=== PATIENT | female | born 1995 | race Caucasian/White ===

== ENCOUNTER 2016-06-01 23:15 | Emergency (ER) | payer BC ==
[~2016-06-01] VITALS: Ht 175.3 cm; Wt 71.1 kg
[2016-06-01 23:22] VITALS: BP 130/87; PULSE 63; RESP 24; TEMP 97.8; O2SAT 99
--- NOTE | 2016-06-02 01:58 | PD ---
HPI Chief Complaint: Eye Problems/Injury Time Seen by Provider: 01:54 Travel History International Travel<30 days: No Contact w/Intl Traveler<30days: No Traveled to known affect area: No History of Present Illness HPI 20-year-old female visiting from out of town presents with right eye irritation and redness. Patient states same symptoms 1 week ago was seen in urgent care and placed on Ilotycin ointment. After using ointment for 3 days symptoms resolved and patient resumed during contact lenses. Patient states that she has not been using the same contact lenses that she had one prior to the onset of her symptoms initially. Patient denies any known injury. Patient denies . Patient has been wearing her eyeglasses. Tetanus status current. Has noted some blurring of vision but no double vision or loss of vision. Patient has had some mild crusting at the corner of her right eye. Patient denies any lid or facial edema. Patient denies any fever or chills. Patient's had no nausea or vomiting. No report of headache. Patient reports pain as 5/ 10 in intensity. [facility] Past Medical History Narrative Medical contact lens and eyeglasses use oral surgery; no tobacco use; nursing notes reviewed Social History Tobacco Use: No Allergies-Medications (Allergen,Severity, Reaction): Coded Allergies: Penicillin (Verified Allergy, Unknown, 06/02/16) Reported Meds & Prescriptions Reported Meds & Active Scripts Active Lortab (Hydrocodone-Acetaminophen) 5-325 Mg Tab 1 Tab PO Q6H PRN Narrative Medication Ilotycin ointment Review of Systems Except as stated in HPI: all other systems reviewed are Neg General / Constitutional: No: Fever Eyes: Positive: Blurred Vision, Photophobia, Foreign Body Sensation, Pain, Tearing, No: Blind Spots HENT: No: Headaches, Vertigo, Congestion Respiratory: No: Cough Gastrointestinal: No: Nausea, Vomiting Musculoskeletal: No: Pain Skin: No Rash Hematologic/Lymphatic: No: Lymph Node Enlargement Physical Exam Narrative GENERAL: SKIN: Warm and dry. HEAD: Normocephalic. EYES: No scleral icterus. No injection or drainage. Pupils equal round reactive to light extraocular muscles intact. Right eye with conjunctival injection no chemosis bilateral pupils equal round reactive to light extraocular muscles intact no gross foreign body on direct inspection fluorescein stain with uptake at the number 11 o'clock position and along the upper outer edge of the cornea; no dendritic changes; no ulcer identified. NECK: Supple, trachea midline. No JVD or lymphadenopathy. CARDIOVASCULAR: Regular rate and rhythm without murmurs, gallops, or rubs. RESPIRATORY: Breath sounds equal bilaterally. No accessory muscle use. Data Data Last Documented VS Vital Signs Date Time Temp Pulse Resp B/P Pulse Ox O2 Delivery O2 Flow Rate FiO2 06/01/16 23:22 97.8 63 24 130/87 99 Orders Proparacaine 0.5% Opth Soln (Alcaine 0.5 (06/02/16 02:00) [facility] Medical Decision Making Medical Screen Exam Complete: Yes Emergency Medical Condition: Yes Medical Record Reviewed: Yes Differential Diagnosis Foreign body, corneal abrasion, corneal ulceration, iritis, conjunctivitis Narrative Course Proparacaine drops administered; Visual acuity obtained right eye 20/20 left eye 20/20 both eyes 20/10 wearing eyeglasses Patient identified to have corneal abrasion without evidence of corneal ulceration. Patient informed that she should not wear contact lenses until she has been evaluated by an welding machine setter. Patient is stable for outpatient management tetanus status is current and patient given referral to on-call welding machine setter. Diagnosis Primary Impression: Corneal abrasion, right Qualified Code: S05.01XA - Corneal abrasion, right, initial encounter Referrals: Application Security Specialist 1 day call center assistant opthalmologist Dr Stephanie Staton for follow up Additional Instructions: Do not wear contact lenses Follow-up with welding machine setter/eye doctor times one day Apply cool compresses for comfort purposes May take as needed ibuprofen per package directions May use saline drops to decrease the irritation Do not rub your eyes Take pain medication as prescribed as needed Med/Other Pt SpecificInfo: Prescription(s) given Scripts Hydrocodone-Acetaminophen (Lortab)5-325 Mg Tab1 Tab PO Q6H PRN (PAIN) #4 TAB Ref 0 Prov:Dea Garrido MD 06/02/16 Disposition: 01 DISCHARGE HOME Condition: Stable Dea Garrido MD Jun 02, 2016 01:58
[2016-06-02] MEDS ORDERED: PROPARACAINE HCL 0.5% OPHT SOLN 15 ML BTL RIGHT EYE ONE (02:00)
[2016-06-02] MEDS ORDERED: HYDR-3533 PO (02:24)
== END 2016-06-02 02:58 | disposition home or self-care (01) ==
LOC: PHED 23:15 → PHEFT 06-02 02:58
DX: S05.01XA Injury of conjunctiva and corneal abrasion without foreign body, right eye, initial encounter (principal); X58.XXXA Exposure to other specified factors, initial encounter
CPT/HCPCS: 99282

== ENCOUNTER 2016-08-23 15:02 | Observation (INO) | payer BC ==
[~2016-08-23] VITALS: Ht 175.3 cm; Wt 68.0 kg
[~2016-08-23 15:02] MED LIST: HYDR-3533 PO
[2016-08-23 15:03] VITALS: BP 119/78; PULSE 89; RESP 16; TEMP 98.5; O2SAT 99
--- NOTE | 2016-08-23 15:20 | PD ---
Physical Exam Time Seen by Provider: 15:18 Narrative 21 y/o female here sent by neurologist Dr. Willingham for further evaluation of diplopia, headache for one month. Specifically she says that he requested a lumbar puncture. MRI of brain 3 weeks ago reportedly showed "swelling of the R optic nerve." vss Seen at triage desk. Awaiting bed placement. Data Data Last Documented VS Vital Signs Date Time Temp Pulse Resp B/P Pulse Ox O2 Delivery O2 Flow Rate FiO2 08/23/16 15:03 98.5 89 16 119/78 99 Room Air [facility] Medical Record Reviewed: Yes Supervised Visit with JOEL: Sriram Chaudhary August 23, 2016 15:20
[2016-08-23] MEDS ORDERED: CRYS28TA PO (16:37)
[2016-08-23] MEDS ORDERED: SODIUM CHLORIDE 0.9% FLUSH 10 ML FLUSH IVF PRN (17:00)
[2016-08-23 17:02] VITALS: RESP 18; O2SAT 100
[2016-08-23 17:25] LABS: AUTOMATED NEUTROPHIL # 4.5 TH/MM3 (1.8-7.7); BASOPHIL % 0.3 % (0.0-2.0); EOSINOPHIL # 0.2 TH/MM3 (0-0.4); EOSINOPHIL % 2.5 % (0.0-4.0); HEMATOCRIT 40.8 % (35.0-46.0); HEMO FLAGS DIFF FINAL; LYMPH % 32.3 % (9.0-44.0); LYMPHOCYTE # 2.5 TH/MM3 (1.0-4.8); MEAN CELL VOLUME 90.5 FL (80.0-100.0); MEAN CORPUSCULAR HEMOGLOBIN 31.6 PG (27.0-34.0); MEAN CORPUSCULAR HGB CONC 34.9 % (32.0-36.0); MONO % 6.7 % (0.0-8.0); NEUT % 58.2 % (16.0-70.0); PLATELET COUNT 211 TH/MM3 (150-450); RED BLOOD COUNT 4.52 MIL/MM3 (4.00-5.30); RED CELL DISTRIBUTION WIDTH 12.1 % (11.6-17.2); WHITE BLOOD COUNT 7.8 TH/MM3 (4.0-11.0)
[2016-08-23 17:31] LABS: APTT (PATIENT) 27.5 SEC (24.3-30.1); PROTHROMBIN TIME - PATIENT 10.7 SEC (9.8-11.6)
[2016-08-23 17:49] LABS: BICARBONATE 27.8 MEQ/L (21.0-32.0); POTASSIUM 4.1 MEQ/L (3.5-5.1)
--- NOTE | 2016-08-23 18:23 | PD.RAD ---
Post Procedure Progress Note Pre Procedure Diagnosis: (1) Pseudotumor cerebri Post Procedure Diagnosis: (1) Pseudotumor cerebri Procedure Date: August 23, 2016 Supervising Radiologist: Theo Castrejon JR Proceduralist/Assist: Ana M Rodriguez RT(R), RT Clemencia(R)() Anesthesia: Local Plan of Activity Patient to Unit: Nursing Unit Patient Condition: Good See PACS Report for procedural detail/treatment Spinal Procedure Lumbar Puncture L4-L5 Fluid Removal (CCs): 10 Fluid Description: Clear Puncture Time: 18:10 Findings: LP yielded clear CSF. Opening pressure: 6 cm H20 Plan Lay flat for two hours Jr. Cash,Theo Barnard MD August 23, 2016 18:23
[2016-08-23 18:35] VITALS: BP 116/71; PULSE 78; RESP 17; O2SAT 99
--- NOTE | 2016-08-23 18:48 | PD ---
HPI Chief Complaint: Neuro Symptoms/ Deficits Time Seen by Provider: 16:45 Travel History International Travel<30 days: No Contact w/Intl Traveler<30days: No Traveled to known affect area: No History of Present Illness HPI Patient is 21 years old. She has left eye lateral visual field loss and right eye lower lateral quadrant visual field loss, diplopia, and cephalgia. Onset gradual. Timing constant. No additional complaint now. Duration approx 1 months. Progressively worsening. Constant. Pt reports vomiting most days. No neck pain. Pt's product accountant observed papilledema on exam. Dr Willingham was consulted who is concerned for pseudotumor cerebri and has arranged for a therapeutic LP. [facility] Past Medical History Asthma: Yes Immunizations Current: Yes (UTD) ?: Not : 0 Past Surgical History Tonsillectomy: Yes Other Surgery: Yes (WISDOM ) Social History Alcohol Use: Yes (OCC) Tobacco Use: No Substance Use: No Allergies-Medications (Allergen,Severity, Reaction): Coded Allergies: Penicillin (Verified Allergy, Unknown, 08/23/16) Reported Meds & Prescriptions Reported Meds & Active Scripts Active Reported Cryselle-28 (Norgestrel-Ethinyl Estradiol) 0.3-30 Mg-Mcg Tab 1 Tab PO DAILY Review of Systems Except as stated in HPI: all other systems reviewed are Neg General / Constitutional: No: Fever Physical Exam Narrative GENERAL: 21 yo F, WNWD, NAD SKIN: Warm and dry. HEAD: Atraumatic. Normocephalic. EYES: Pupils equal and round. ENT: No nasal bleeding or discharge. Mucous membranes pink and moist. NECK: Trachea midline. No JVD. CARDIOVASCULAR: Regular rate and rhythm. RESPIRATORY: No accessory muscle use. Clear to auscultation. Breath sounds equal bilaterally. GASTROINTESTINAL: Abdomen soft, non-tender, nondistended. Hepatic and splenic margins not palpable. MUSCULOSKELETAL: Extremities without clubbing, cyanosis, or edema. No obvious deformities. NEUROLOGICAL: Awake and alert. No obvious cranial nerve deficits. Motor grossly within normal limits. Five out of 5 muscle strength in the arms and legs. Normal speech. PSYCHIATRIC: Appropriate mood and affect; insight and judgment normal. Data Data Last Documented VS Vital Signs Date Time Temp Pulse Resp B/P Pulse Ox O2 Delivery O2 Flow Rate FiO2 08/23/16 18:35 78 17 116/71 99 Room Air 08/23/16 15:03 98.5 VS reviewed Orders Complete Blood Count With Diff (08/23/16 16:48) Basic Metabolic Panel (Bmp) (08/23/16 16:48) Prothrombin Time / Inr (Pt) (08/23/16 16:48) Act Partial Throm Time (Ptt) (08/23/16 16:48) Ecg Monitoring (08/23/16 16:48) Iv Access Insert/Monitor (08/23/16 16:48) Oximetry (08/23/16 16:48) Sodium Chloride 0.9% Flush (Ns Flush) (08/23/16 17:00) Vital Signs (Adult) .On admission (08/23/16 16:51) ^ Notify Radiology (08/23/16 16:51) Vital Signs (Adult) .On admission (08/23/16 16:51) ^ Notify Radiology (08/23/16 16:51) Csf Cryptococcus Antigen (08/23/16 16:51) Csf Afb Culture And Stain (08/23/16 16:51) Csf Fungus Culture And Stain (08/23/16 16:51) Glucose, Csf (08/23/16 16:51) Vdrl Csf (08/23/16 16:51) Csf Cell Count + Differential (08/23/16 16:51) Total Protein, Csf (08/23/16 16:51) Lumbar Puncture (08/23/16 ) Vital Signs (Adult) .On admission (08/23/16 17:09) ^ Notify Radiology (08/23/16 17:09) Beta Hcg (Quant/Titer) (08/23/16 17:09) Vital Signs (Adult) .As directed (08/23/16 18:21) Activity Bed Rest (08/23/16 18:21) ^ Notify Radiology (08/23/16 18:21) ^ Encourage Fluids (08/23/16 18:21) Anticoagulant Alert (08/23/16 18:21) Csf Culture And Gram Stain (08/23/16 18:10) Acetaminophen (Tylenol) (08/23/16 19:00) Prochlorperazine Inj (Compazine Inj) (08/23/16 19:00) Diphenhydramine Inj (Benadryl Inj) (08/23/16 19:00) Hydromorphone Pf Inj (Dilaudid Pf Inj) (08/23/16 19:00) Admit Order (Ed Use Only) (08/23/16 19:13) Labs Laboratory Tests Test 08/23/16 08/23/16 08/23/16 16:05 16:50 18:10 Human Chorionic Gonadotropin, LESS THAN 1 Quant MIU/ML White Blood Count 7.8 TH/MM3 Red Blood Count 4.52 MIL/MM3 Hemoglobin 14.3 GM/DL Hematocrit 40.8 % Mean Corpuscular Volume 90.5 FL Mean Corpuscular Hemoglobin 31.6 PG Mean Corpuscular Hemoglobin 34.9 % Concent Red Cell Distribution Width 12.1 % Platelet Count 211 TH/MM3 Mean Platelet Volume 10.0 FL Neutrophils (%) (Auto) 58.2 % Lymphocytes (%) (Auto) 32.3 % Monocytes (%) (Auto) 6.7 % Eosinophils (%) (Auto) 2.5 % Basophils (%) (Auto) 0.3 % Neutrophils # (Auto) 4.5 TH/MM3 Lymphocytes # (Auto) 2.5 TH/MM3 Monocytes # (Auto) 0.5 TH/MM3 Eosinophils # (Auto) 0.2 TH/MM3 Basophils # (Auto) 0.0 TH/MM3 CBC Comment DIFF FINAL Differential Comment Prothrombin Time 10.7 SEC Prothromb Time International 1.0 RATIO Ratio Activated Partial 27.5 SEC Thromboplast Time Sodium Level 140 MEQ/L Potassium Level 4.1 MEQ/L Chloride Level 104 MEQ/L Carbon Dioxide Level 27.8 MEQ/L Anion Gap 8 MEQ/L Blood Urea Nitrogen 16 MG/DL Creatinine 0.91 MG/DL Estimat Glomerular Filtration 79 ML/MIN Rate Random Glucose 67 MG/DL Calcium Level 9.3 MG/DL CSF Volume (Tube 1) 2.9 ML CSF Supernatant Color (tube 1) CLEAR CSF Gross Blood (Tube 1) TRACE CSF Volume (Tube 2) 2.4 ML CSF Supernatant Color (tube 2) CLEAR CSF Gross Blood (Tube 2) 0 CSF Volume (Tube 3) 2.0 ML CSF Supernatant Color (tube 3) CLEAR CSF Gross Blood (Tube 3) 0 CSF Volume (Tube 4) 2.8 ML CSF Supernatant Color (tube 4) CLEAR CSF Gross Blood (Tube 4) 0 CSF WBC (Tube 4) 2 /MM3 CSF RBC (Tube 4) 10 /MM3 CSF Neutrophils 100 % CSF Lymphocytes 0 % CSF Glucose 50 MG/DL CSF Total Protein 32.0 MG/DL CSF VDRL NON-REACTIVE CSF Cryptococcus Antigen NOT DETECTED MDM Medical Decision Making Medical Screen Exam Complete: Yes Emergency Medical Condition: Yes Medical Record Reviewed: Yes Differential Diagnosis Pseudotumor cerebri, MS, migraine, complex migraine, intracranial mass Narrative Course CBC & BMP Diagram 08/23/16 16:[address] Tafoya for hospitalist service. Patient's headache was worse after the lumbar puncture. About an hour and a half or so after the LP the pain became much worse with very severe cephalgia. No new neurologic deficit. Compazine Benadryl Tylenol 0.5 mg of Dilaudid were ordered. Stat head CT ordered. Case discussed with Dr. Reynolds. Supine positioning for 6 hours, 500 cc saline, check for hypotension. Patient reassessed at 7:40 PM and reports feeling much better. Plan discussed with patient who is agreeable. Critical Care Narrative Aggregate critical care time was 40 minutes. Time to perform other separately billable procedures was not included in the critical care time. My time did not include minutes spent treating any other patients simultaneously or on activities that did not directly contribute to the patient's treatment. The services I provided to this patient were to treat and/or prevent clinically significant deterioration that could result in: Intractable pain, permanent neurologic injury I provided critical care services requiring my management, as noted below: Chart data review, documentation time, medication orders and management, vital sign assessments/reviewing monitor data, ordering and reviewing lab tests, ordering and interpreting/reviewing x-rays and diagnostic studies, care of the patient and discussion of the patient with the admitting physicians. Diagnosis Primary Impression: Diplopia Additional Impressions: Cephalgia Qualified Code: R51 - Nonintractable headache, unspecified chronicity pattern , unspecified headache type Vomiting Qualified Code: R11.10 - Vomiting, intractability of vomiting not specified, presence of nausea not specified, unspecified vomiting type Admitting Information Admitting Physician Requests: Admit Scripts Silver Sulfadiazine Topical (SSD Topical)1 % Cream1 Applic TOPICAL Q12HR #15 GM Ref 0 Prov:Getachew Priest MD 08/24/16 Walter Williamson MD August 23, 2016 18:48
[2016-08-23] MEDS ORDERED: PROCHLORPERAZINE INJ 10 MG/2 ML VIAL IVP ONE (19:00)
[2016-08-23] MEDS ORDERED: diphenhydrAMINE HCL 50 MG/ML VIAL IVP ONE (19:00)
[2016-08-23] MEDS ORDERED: HYDROmorphone HCL PF 1 MG/ML VIAL IV PUSH ONE (19:00)
[2016-08-23] MEDS ORDERED: ACETAMINOPHEN 325 MG TAB PO ONE (19:00)
[2016-08-23 19:18] VITALS: BP 115/60; PULSE 71; RESP 18; O2SAT 100
[2016-08-23] MEDS ORDERED: SODIUM CHLORID 0.9% 500 ML INJ 500 ML IV ONE (19:45)
[2016-08-23 19:58] VITALS: BP 108/58; PULSE 58; RESP 16; O2SAT 99
[2016-08-23] MEDS ORDERED: NALOXONE HCL 0.4 MG/ML AMP IV PRN (20:00)
[2016-08-23] MEDS ORDERED: SODIUM CHLORIDE 0.9% FLUSH 10 ML FLUSH IV FLUSH PRN (20:00)
--- NOTE | 2016-08-23 20:04 | RADRPT ---
EXAM DATE/TIME: 08/23/2016 19:51 [facility] COMPARISON: No previous studies available for comparison. INDICATIONS : Cephalgia for 3 weeks. Worsening after lumbar puncture earlier today. RADIATION DOSE: 37.02 CTDIvol (mGy) MEDICAL HISTORY : None SURGICAL HISTORY : None. ENCOUNTER: Initial ACUITY: 3 weeks PAIN SCALE: 3/10 LOCATION: cranial TECHNIQUE: Multiple contiguous axial images were obtained of the head. Using automated exposure control and adj ustment of the mA and/or kV according to patient size, radiation dose was kept as low as reasonably a chievable to obtain optimal diagnostic quality images. FINDINGS: CEREBRUM: The ventricles are normal for age. No evidence of midline shift, mass lesion, hemorrhage or acute in farction. No extra-axial fluid collections are seen. POSTERIOR FOSSA: The cerebellum and brainstem are intact. The 4th ventricle is midline. The cerebellopontine angle i s unremarkable. EXTRACRANIAL: There is mucoperiosteal thickening of the ethmoid air cells. Visualized mastoid air cells are clear. SKULL: The calvaria is intact. No evidence of skull fracture. CONCLUSION: No bleed or other acute intracranial abnormality demonstrated. Sinus disease noted. Javi Mcgovern MD on August 23, 2016 at 20:01 Board Certified Radiologist. This report was verified electronically.
[2016-08-23 20:06] LABS: GROSS BLOOD TUBE #1 TRACE (0); GROSS BLOOD TUBE #2 0 (0); GROSS BLOOD TUBE #3 0 (0); GROSS BLOOD TUBE #4 0 (0); SUPERNATE COLOR TUBE #1 CLEAR (CLEAR); SUPERNATE COLOR TUBE #2 CLEAR (CLEAR); SUPERNATE COLOR TUBE #3 CLEAR (CLEAR); SUPERNATE COLOR TUBE #4 CLEAR (CLEAR); VOLUME TUBE # 1 2.9 ML; VOLUME TUBE # 2 2.4 ML; VOLUME TUBE # 4 2.8 ML
[2016-08-23 20:10] LABS: CSF LYMPHOCYTES 0 %; CSF NEUTROPHILS 100 %; WBC TUBE #4 2 /MM3 (0-10)
[2016-08-23] MEDS: SODIUM CHLOR 0.9% 1000 ML INJ 1,000 ML IV SCH ×2 (20:24→22:10)
[2016-08-23 20:38] LABS: BETA HCG QUANT LESS THAN 1 MIU/ML (0-5)
[2016-08-23] MEDS: SODIUM CHLORIDE 0.9% FLUSH 10 ML FLUSH IV FLUSH SCH (21:00)
[2016-08-23 21:07] VITALS: BP 123/66; PULSE 74; RESP 16; TEMP 97.6; O2SAT 96
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
[2016-08-23] MEDS: SILVER SULFADIAZINE 1% CR 50 GM JAR TOPICAL SCH (22:45)
--- NOTE | 2016-08-23 22:49 | RADRPT ---
EXAM DATE/TIME: 08/23/2016 22:21 [facility] COMPARISON: No previous studies available for comparison. INDICATIONS : Right leg swelling. MEDICAL HISTORY : Asthma. Dyspnea. SURGICAL HISTORY : Tonsillectomy. ENCOUNTER: Initial ACUITY: 1 day PAIN SCORE: 3/10 LOCATION: Right leg. TECHNIQUE: Venous ultrasound of the leg was performed from the inguinal ligament to the proximal calf. Real-angelique e, color Doppler and spectral tracing, compression and augmentation techniques were used. FINDINGS: There is normal compressibility of the deep venous system from the inguinal region to the proximal ca lf. No echogenic clot is seen in the lumen of the common femoral, femoral, popliteal, and posterior tibial veins. There is a normal response of the venous system to proximal and distal augmentation an d respiration. CONCLUSION: No DVT of the right lower extremity. Javi Mcgovern MD on August 23, 2016 at 22:47 Board Certified Radiologist. This report was verified electronically.
[2016-08-24] VITALS: BP 127/69; PULSE 81; RESP 17; TEMP 96.5; O2SAT 97
[2016-08-24] MEDS: HYDROmorphone HCL PF 1 MG/ML VIAL IV PUSH PRN ×4 (00:02→13:53)
[2016-08-24 04:00] VITALS: BP 132/65; PULSE 119; RESP 17; TEMP 98.1; O2SAT 98
--- NOTE | 2016-08-24 05:38 | MB ---
cc: SARAH MANJARREZ M.D. DATE OF CONSULTATION 08/23/2016 REASON FOR CONSULTATION Pseudotumor cerebri. HISTORY OF PRESENT ILLNESS Ms. Delgado is a very pleasant 21-year-old female previously in excellent health until about a month or 6 weeks ago when she began to experience occipital headaches which were somewhat intermittent. Shortly after that began to experience double vision where she would see two objects usually horizontally displaced or vertically displaced. She presented to an manager landscape who found papilledema. She also had visual field deficit in the left eye. She had a temporal field cut for the superior and inferior stokes. In the right eye she had an inferior right quadrant cut. She had an MRI of the brain done at [facility] in [place] which was normal. She was referred to my office for further evaluation of possible pseudotumor cerebral. PAST MEDICAL HISTORY Unremarkable. MEDICATIONS She takes control pills. REVIEW OF SYSTEMS Otherwise negative. No fevers or chills. NEUROLOGIC EXAMINATION Higher cortical functions are normal. Cranial nerves: She has decreased visual stokes on gross confrontational testing. In the left eye she has difficulty seeing in the entire temporal field both superiorly and inferiorly. In the right eye she has difficulty seeing in the inferior right field. The pupils are equal and reactive. On fundi exam she does have papilledema. 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 Other cranial nerves intact. Motor exam is normal with 5/5 strength of all groups in both upper and lower extremities. There is no drift. Fine motor skills normal. Reflexes are symmetric. Gait is normal. IMPRESSION I suspect probable pseudotumor cerebri with concerns of vision loss and double vision which appears to be a sixth nerve palsy. RECOMMENDATIONS 1. Because of the vision loss which has been progressive over the past couple of weeks, I recommended admission to expedite lumbar puncture to measure opening pressure and if elevated greater than 20 to reduce enough CSF to reduce the pressure to normal range. 2. Also send CSF for routine labs including cell count differential, protein, glucose, culture, sensitivity, cryptococcal antigen, VDRL, fungal stain and culture, AFB stain and culture. 3. Would also recommend MR venogram to be sure she does not have a venous sinus thrombosis. 4. If the pressure is high, we will need to consider a possible neurosurgical evaluation. 5. Would also recommend starting Diamox. MD BHAVANI Ramirez /4:59 PM /5:25 AM
[2016-08-24 07:46] VITALS: BP 116/68; PULSE 98; RESP 18; TEMP 96.1; O2SAT 97
[2016-08-24 08:44] LABS: AUTOMATED NEUTROPHIL # 5.7 TH/MM3 (1.8-7.7); BASOPHIL % 0.2 % (0.0-2.0); EOSINOPHIL # 0.1 TH/MM3 (0-0.4); EOSINOPHIL % 1.1 % (0.0-4.0); HEMATOCRIT 37.2 % (35.0-46.0); HEMO FLAGS DIFF FINAL; LYMPH % 22.3 % (9.0-44.0); LYMPHOCYTE # 1.8 TH/MM3 (1.0-4.8); MEAN CELL VOLUME 91.1 FL (80.0-100.0); MEAN CORPUSCULAR HEMOGLOBIN 31.4 PG (27.0-34.0); MEAN CORPUSCULAR HGB CONC 34.4 % (32.0-36.0); MONO % 4.7 % (0.0-8.0); NEUT % 71.7 % (16.0-70.0); PLATELET COUNT 168 TH/MM3 (150-450); RED BLOOD COUNT 4.08 MIL/MM3 (4.00-5.30); RED CELL DISTRIBUTION WIDTH 12.3 % (11.6-17.2)
--- NOTE | 2016-08-24 08:56 | HHI.PR ---
Review/Management Diagnosis No evidence of pseudotumor cerebri with normal LP opening Pressure double vision of ? etiology, papilledema, bitemporal visual field deficit of ? etiology. Outside MRI brain was normal with no sign of MS, no sign of tumor or pituitary/ Sella tumor, but it did not have dedicated cuts to sella. I think her headache is more of an occipital neuralgia headache and not a post- LP headache for reasons I outlined above. Plan I woud like to repeat MRI brain to include dedicated cuts to Sella to be sure there is no pituitary tumor as her formal visual stokes done by ophthalmology as outpatient indicated a bitemporal deficit. Also will ask for MR venogram to r /o venous sinus thrombosis. Check lab for myasthenia gravis antibodies and B12 IF the MRI and MRvenogram are normal, ok to discharge from neurology standpoint today and follow up with me in 1 week. Diagnosis/Plan: Subjective Subjective Comments She underwent LP yesterday without complication. Opening pressure was 6 cm H2O which is agains pseudotumor cerebri. She c/o headache following LP, but it is present when she is supine in the back of her head and actually improves when she is upright which is not at all consistent with a post - LP headache. Active Medications Current Medications Medications (Trade) Dose Ordered Sig/Jeffry Route Start Time Stop Time Status Last Admin (NS 1000 ml Inj) 1,000 ml @ 100 mls/hr Q10H IV 08/23/16 20:00 08/23/16 22:10 (NS Flush) 2 ml UNSCH PRN IV FLUSH 08/23/16 20:00 (NS Flush) 2 ml BID IV FLUSH 08/23/16 21:00 (Narcan Inj) 0.4 mg UNSCH PRN IV 08/23/16 20:00 (Dilaudid Pf Inj) 0.2 mg Q4H PRN IV PUSH 08/23/16 20:00 08/24/16 05:00 (Silvadene 1% Cream (50 Gm)) 1 applic Q12HR TOPICAL 08/23/16 22:45 08/23/16 22:45 Allergies Allergies Coded Allergies Penicillin (Verified Allergy, Unknown, 08/23/16) Exam I&O / VS 08/23/16 08/23/16 08/24/16 15:00 23:00 07:00 Intake Total 652 ml 1183 ml Balance 652 ml 1183 ml Intake Oral 480 ml 480 ml IV Total 172 ml 703 ml # Voids 1 2 # Bowel Movements 0 0 Vital Signs Date Time Temp Pulse Resp B/P Pulse Ox O2 Delivery O2 Flow Rate FiO2 08/24/16 07:46 96.1 98 18 116/68 97 08/24/16 04:00 98.1 119 17 132/65 98 08/24/16 00:00 96.5 81 17 127/69 97 08/23/16 21:07 97.6 74 16 123/66 96 08/23/16 19:58 58 16 108/58 99 Nasal Cannula 2 08/23/16 19:18 71 18 115/60 100 Room Air 08/23/16 18:35 78 17 116/71 99 Room Air 08/23/16 17:02 18 100 Room Air 08/23/16 15:03 98.5 89 16 119/78 99 Room Air Exam Comments alert, oriented times 3. speech normal CN--left lateral rectus is normal in strength today. She states she has some double vision with extreme lateral gaze to left and to right c/o "fuzzy" vision in bilateral temporal stokes MOTOR--5/5BUE , no focal deficits. Objective Radiology Results CT brain normal last PM Micro and Labs Laboratory Tests Test 08/23/16 08/23/16 08/23/16 08/24/16 16:05 16:50 18:10 08:05 Human Chorionic Gonadotropin, LESS THAN 1 Quant White Blood Count 7.8 8.0 Red Blood Count 4.52 4.08 Hemoglobin 14.3 12.8 Hematocrit 40.8 37.2 Mean Corpuscular Volume 90.5 91.1 Mean Corpuscular Hemoglobin 31.6 31.4 Mean Corpuscular Hemoglobin 34.9 34.4 Concent Red Cell Distribution Width 12.1 12.3 Platelet Count 211 168 Mean Platelet Volume 10.0 10.1 Neutrophils (%) (Auto) 58.2 71.7 Lymphocytes (%) (Auto) 32.3 22.3 Monocytes (%) (Auto) 6.7 4.7 Eosinophils (%) (Auto) 2.5 1.1 Basophils (%) (Auto) 0.3 0.2 Neutrophils # (Auto) 4.5 5.7 Lymphocytes # (Auto) 2.5 1.8 Monocytes # (Auto) 0.5 0.4 Eosinophils # (Auto) 0.2 0.1 Basophils # (Auto) 0.0 0.0 CBC Comment DIFF FINAL DIFF FINAL Differential Comment Prothrombin Time 10.7 Prothromb Time International 1.0 Ratio Activated Partial 27.5 Thromboplast Time Sodium Level 140 Potassium Level 4.1 Chloride Level 104 Carbon Dioxide Level 27.8 Anion Gap 8 Blood Urea Nitrogen 16 Creatinine 0.91 Estimat Glomerular Filtration 79 Rate Random Glucose 67 Calcium Level 9.3 CSF Volume (Tube 1) 2.9 CSF Supernatant Color (tube 1) CLEAR CSF Gross Blood (Tube 1) TRACE CSF Volume (Tube 2) 2.4 CSF Supernatant Color (tube 2) CLEAR CSF Gross Blood (Tube 2) 0 CSF Volume (Tube 3) 2.0 CSF Supernatant Color (tube 3) CLEAR CSF Gross Blood (Tube 3) 0 CSF Volume (Tube 4) 2.8 CSF Supernatant Color (tube 4) CLEAR CSF Gross Blood (Tube 4) 0 CSF WBC (Tube 4) 2 CSF RBC (Tube 4) 10 CSF Neutrophils 100 CSF Lymphocytes 0 CSF Glucose 50 CSF Total Protein 32.0 Date/Time Procedure Status Source Growth 08/23/16 18:10 Gram Stain - Final Resulted Cerebral Spinal Fluid Lumbar Puncture 08/23/16 18:10 CSF Culture - Preliminary Resulted Cerebral Spinal Fluid Lumbar Puncture NO GROWTH IN 24 HOURS. 08/23/16 18:10 Fungal Smear Received Cerebral Spinal Fluid Lumbar Puncture Pending 08/23/16 18:10 Fungal Culture Received Cerebral Spinal Fluid Lumbar Puncture Pending 08/23/16 18:10 Acid Fast Stain Received Cerebral Spinal Fluid Lumbar Puncture Pending 08/23/16 18:10 Mycobacterial Culture Received Cerebral Spinal Fluid Lumbar Puncture Pending Diagnostic Tests CSF so far normal Nithin Willingham PhD MD August 24, 2016 08:56
[2016-08-24] MEDS: SILVER SULFADIAZINE 1% CR 50 GM JAR TOPICAL SCH (09:00)
[2016-08-24] MEDS: SODIUM CHLORIDE 0.9% FLUSH 10 ML FLUSH IV FLUSH SCH (09:00)
[2016-08-24 09:23] LABS: BICARBONATE 22.3 MEQ/L (21.0-32.0)
--- NOTE | 2016-08-24 09:24 | RADRPT ---
EXAM DATE/TIME: 08/23/2016 19:01 [facility] COMPARISON: No previous studies available for comparison. INDICATIONS : Patient with history of pseudotumor cerebri in need of lumbar puncture. MEDICAL HISTORY : 1.Headache 2.Double vision SURGICAL HISTORY : None. ENCOUNTER: Initial ACUITY: 1 month PAIN SCORE: 7/10 LOCATION: cranial LUMBAR PUNCTURE TIME: 1810 hours FLUORO TIME: 1.1 minutes ACCESS LEVEL: L4-5 OPENING PRESSURE: 6 cm of water CLOSING PRESSURE: Not requested. FLUID: 10 cc of clear CSF was collected and sent to the laboratory for analysis. PROCEDURE : 1. Fluoroscopic guided lumbar puncture. 2. Recording of opening pressure. The risks, benefits and alternatives to the procedure were explained and verbal and written consent w as obtained. The site was prepped in sterile fashion. Full sterile technique was used, including ca p, mask, sterile gloves and gown and a large sterile sheet. Hand hygiene and 2% chlorhexidine and/or betadine/alcohol prep was utilized per protocol for cutaneous antisepsis. The skin and subcutaneous tissues were infiltrated with local anesthetic solution. With fluoroscopic guidance the lumbar thecal sac was punctured at the above level described above and the opening pressure was recorded. The above described fluid was removed without difficulty. The patient tolerated the procedure well and there were no complications. CONCLUSION: Uncomplicated fluoroscopically guided lumbar puncture with normal opening pressure. C lear CSF obtained. Theo Castrejon Jr., MD on August 24, 2016 at 9:19 Board Certified Radiologist. This report was verified electronically.
[2016-08-24] MEDS ORDERED: ONDANSETRON HCL 4 MG/2 ML VIAL IV PUSH PRN (11:00)
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
--- NOTE | 2016-08-24 12:01 | RADRPT ---
EXAM DATE/TIME: 08/24/2016 11:15 [facility] COMPARISON: No previous studies available for comparison. INDICATIONS : Cephalgia. MEDICAL HISTORY : None. SURGICAL HISTORY : Tonsillectomy. ENCOUNTER: Initial ACUITY: 3 day PAIN SCORE: 3/10 LOCATION: head Please note a normal MRA of the brain does not entirely exclude the possibility of a small aneurysm, nor the possibility of distal intracranial vessel disease. TECHNIQUE: MR venography of the brain was performed without contrast with multiplanar and 3D reconstructions. FINDINGS: Normal signal is identified within the major intracranial venous structures. No filling defects obser freeman. CONCLUSION: Unremarkable exam. Theo Castrejon Jr., MD on August 24, 2016 at 11:54 Board Certified Radiologist. This report was verified electronically.
--- NOTE | 2016-08-24 12:02 | RADRPT ---
EXAM DATE/TIME: 08/24/2016 11:15 [facility] COMPARISON: No previous studies available for comparison. INDICATIONS : Cephalgia. MEDICAL HISTORY : None. SURGICAL HISTORY : Tonsillectomy. ENCOUNTER: Initial ACUITY: 3 day PAIN SCORE: 3/10 LOCATION: head Please note a normal MRA of the brain does not entirely exclude the possibility of a small aneurysm, nor the possibility of distal intracranial vessel disease. TECHNIQUE: 3D time of flight MRA was performed. Source images, multiplanar STS MIP, and 3D volume MIP reconstru ctions were reviewed. FINDINGS: There is excellent visualization of the major intracranial arteries out to the second-order branch ve ssels. There is no evidence for aneurysm, vessel truncation or stenosis, and no evidence for vascula r malformation. A complete pyramid [place] is noted. CONCLUSION: Normal examination. Theo Castrejon Jr., MD on August 24, 2016 at 11:59 Board Certified Radiologist. This report was verified electronically.
[2016-08-24] MEDS ORDERED: GADODIAMIDE PF 287 MG/ML 5 ML VIAL (for RAD MRI) IV ONE (12:32)
[2016-08-24] MEDS ORDERED: SSD1CRE TOPICAL (13:44)
--- NOTE | 2016-08-24 14:42 | RADRPT ---
EXAM DATE/TIME: 08/24/2016 11:15 [facility] COMPARISON: No previous studies available for comparison. INDICATIONS : Cephalgia. Pituitary mass. CONTRAST: 12 cc Omniscan (gadodiamide) IV MEDICAL HISTORY : None. SURGICAL HISTORY : Tonsillectomy. ENCOUNTER: Initial ACUITY: 2 day PAIN SCORE: 3/10 LOCATION: head TECHNIQUE: Multiplanar, multisequence MRI of the brain was performed both prior to and following the administrat ion of paramagnetic contrast. Thin section and dynamic imaging through the pituitary gland performed. FINDINGS: CEREBRUM: The ventricles are normal for age. No evidence of midline shift, mass lesion, hemorrhage or acute in farction. No extraaxial fluid collections are seen. The pituitary gland and suprasellar cistern are normal in configuration. WHITE MATTER: No significant signal abnormalities are seen in the white matter. POSTERIOR FOSSA: The cerebellum and brainstem are intact. The 4th ventricle is midline. The cerebellopontine angle is unremarkable. The cerebellar tonsils are normal in position. DIFFUSION IMAGING: No focal areas of restricted diffusion are seen. No evidence of acute infarction. EXTRACRANIAL: The visualized portions of the orbits and paranasal sinuses are unremarkable. POST-CONTRAST: No abnormal areas of parenchymal or dural enhancement. No evidence of blood-brain barrier breakdown. CONCLUSION: Normal examination. Theo Castrejon Jr., MD on August 24, 2016 at 14:38 Board Certified Radiologist. This report was verified electronically.
--- NOTE | 2016-08-24 14:56 | HHI.DCPOC ---
Discharge Care Plan Diagnosis: (1) Right leg swelling (2) Burn of right lower leg (3) Cephalgia (4) Diplopia Goals to Promote Your Health * To prevent worsening of your condition and complications * To maintain your health at the optimal level Directions to Meet Your Goals Take your medications as prescribed Follow your dietary instruction Follow activity as directed Keep your appointments as scheduled Take your immunizations and boosters as scheduled If your symptoms worsen call your PCP, if no PCP go to Urgent Care Center or Emergency Room Smoking is Dangerous to Your Health. Avoid second hand smoke Call the 24-hour hour crisis hotline for domestic abuse at Getachew Priest MD August 24, 2016 14:56
[2016-08-26 13:52] LABS: STRIATED MUCLE AB TITER ND (<1:40)
[2016-08-26 17:53] LABS: VDRL CSF NON-REACTIVE (())
[2016-08-26 18:43] LABS: CSF CRYPTOCOCCUS AG CONF ND (NOT DETECTD)
[2016-08-26 19:53] LABS: ACETYLCHOLINE REC BINDING LESS THAN 0.30 nmol/L (())
== END 2016-08-24 15:59 | disposition home or self-care (01) ==
LOC: NEPE 15:02 → NEDA 19:15 → INTOOBSV 19:15 → N06B 20:32
PROVIDERS: ADMIT Family Medicine; ATTEND Family Medicine
DX: R51 Headache (principal); H53.2 Diplopia; R11.10 Vomiting, unspecified; M79.89 Other specified soft tissue disorders; T24.031A Burn of unspecified degree of right lower leg, initial encounter; J45.909 Unspecified asthma, uncomplicated
CPT/HCPCS: 62270; 70450; 70544; 70553; 77003; 80048; 82607; 82945; 83519; 84157; 84443; 84702; 85025; 85610; 85730; 86255; 86403; 86592; 87015; 87070; 87102; 87116; 87205; 87206; 89051; 93971; 99291; A9579; G0378; J0780; J1170; J1200; J2405; J7030; J7040

== ENCOUNTER 2016-09-08 13:34 | Emergency (ER) | payer BC ==
[~2016-09-08] VITALS: Ht 175.3 cm; Wt 70.0 kg
[~2016-09-08 13:34] MED LIST changes: +CRYS28TA PO; -HYDR-3533 PO; +SSD1CRE TOPICAL
[2016-09-08 13:36] VITALS: BP 127/78; PULSE 84; RESP 20; TEMP 98; O2SAT 98
[2016-09-08] MEDS ORDERED: BUTA1CAP PO (15:26)
[2016-09-08] MEDS ORDERED: ZOFR4TAB3 SL (15:27)
--- NOTE | 2016-09-08 15:27 | PD ---
HPI Chief Complaint: Headache Time Seen by Provider: 14:38 Travel History International Travel<30 days: No Contact w/Intl Traveler<30days: No Traveled to known affect area: No History of Present Illness HPI 21-year-old young woman with a history of headaches and visual changes for the past several months, found to have papilledema, admitted August 23 for extensive workup including MRI, MRV, LP with normal opening pressure, and completely negative workup. Since in she's had worsening positional headache, and concern for post-LP headache. She is followed by Dr. Willingham. Dr. Willingham referred her for a blood patch. She supposed to get dystonic days ago, with [facility], but then had anxiety and the thought of the procedure was explained and left. She' s had worsening headache and so came to the emergency department today. She has a prescription from Dr. Willingham for a blood patch. History Past Medical History Medical History: Denies Significant Hx Tetanus Vaccination: < 5 Years Influenza Vaccination: No LMP: 08/12/16 : 0 Social History Alcohol Use: Yes (OCC) Tobacco Use: No Allergies-Medications (Allergen,Severity, Reaction): Coded Allergies: Penicillin (Verified Allergy, Unknown, hives, 09/08/16) Reported Meds & Prescriptions Reported Meds & Active Scripts Active Zofran Odt (Ondansetron Odt) 4 Mg Tab 4 Mg SL Q8HR PRN May substitute non-ODT form. Fioricet (Efrkdatjwd-Yawtfwwmshxah-Khwyopwv) 50-300-40 Mg Cap 1-2 Cap PO Q6H PRN Reported Cryselle-28 (Norgestrel-Ethinyl Estradiol) 0.3-30 Mg-Mcg Tab 1 Tab PO DAILY Review of Systems Except as stated in HPI: all other systems reviewed are Neg Physical Exam Narrative GENERAL: Well-appearing 21-year-old, no acute distress. SKIN: Warm and dry. CARDIOVASCULAR: Warm and well perfused. RESPIRATORY: Normal rate and effort. MUSCULOSKELETAL: No distress. NEUROLOGICAL: Awake and alert. No gross deficits. Data Data Last Documented VS Vital Signs Date Time Temp Pulse Resp B/P Pulse Ox O2 Delivery O2 Flow Rate FiO2 09/08/16 14:36 16 99 Room Air 09/08/16 13:36 98.0 84 127/78 MDM Medical Decision Making Medical Screen Exam Complete: Yes Emergency Medical Condition: Yes Differential Diagnosis Post LP headache, epidural hematoma, meningitis or encephalitis, abscess, other Narrative Course Medical decision making Is a 21-year-old young woman presents emergency Department with a prescription for Lortab. She's had persistent headache for the past 2 weeks since her LP, but related headache pre-existing. Headache is positional in nature. She is a lot of anxiety. She does also describes discomfort in her back and into her legs. No numbness tingling or weakness. She would like to be knocked out completely for the blood patch. I told her that is unlikely anybody will put her to sleep to do a blood patch. I spoke with Dr. Willingham on the phone who requested that we do the blood patch here. I spoke with anesthesia who states that they cannot do a blood patch unless patient is seen by neurosurgery and they recommended the patient has normal labs. Dr. Willingham states he can arrange for a blood patch and outpatient tomorrow. I gave the patient a prescription Fioricet recommend they call Dr. Willingham tomorrow, and agree to return for any worsening back pain, headache, numbness tingling weakness or trouble walking. Diagnosis Primary Impression: Headache Additional Instructions: Follow-up with Dr. Willingham tomorrow. Take Fioricet as prescribed as needed for headache. Drink plenty fluids stay well-hydrated. Return to the emergency department for any new or worsening symptoms. Med/Other Pt SpecificInfo: Prescription(s) given Scripts Ondansetron Odt (Zofran Odt)4 Mg Tab4 Mg SL Q8HR PRN (Nausea/Vomiting) #15 TAB May substitute non-ODT form. Prov:Miguel Ibrahim MD 09/08/16 Wsitmrueqp-Kvluuvsnzwlpj-Vvwlwunp (Fioricet)50-300-40 Mg Cap1-2 Cap PO Q6H PRN ( HEADACHE) #20 CAP Ref 0 Prov:Miguel Ibrahim MD 09/08/16 Disposition: 01 DISCHARGE HOME Condition: Stable Miguel Ibrahim MD September 08, 2016 15:27
[2016-09-08 15:31] VITALS: BP 120/78; TEMP 98
== END 2016-09-08 15:31 | disposition home or self-care (01) ==
LOC: NEPC 13:34
DX: R51 Headache (principal)
CPT/HCPCS: 99283

== ENCOUNTER 2016-11-04 20:03 | Emergency (ER) | payer BC ==
[~2016-11-04] VITALS: Ht 175.3 cm; Wt 69.4 kg
[~2016-11-04 20:03] MED LIST changes: +BUTA1CAP PO; -SSD1CRE TOPICAL; +ZOFR4TAB3 SL
[2016-11-04 20:33] VITALS: BP 136/89; PULSE 74; RESP 18; TEMP 98.5; O2SAT 100
[2016-11-04] MEDS ORDERED: DOXE10CA PO (20:43)
[2016-11-04] MEDS ORDERED: LIDOCAINE HCL 1% 50 ML VIAL INFIL ONE (20:45)
[2016-11-04] MEDS ORDERED: LORazepam 2 MG TAB PO ONE (20:45)
--- NOTE | 2016-11-04 20:56 | PD ---
HPI Chief Complaint: Laceration/Skin Injury Time Seen by Provider: 20:51 Travel History International Travel<30 days: No Contact w/Intl Traveler<30days: No Traveled to known affect area: No History of Present Illness HPI 21-year-old female that presents to the ED for evaluation of laceration to left leg. Injury occurred a couple hours ago. Patient accepted to cut herself with a knife trying to open a package. She had some bleeding from the area. Laceration is on the lateral aspect of the left upper leg. She apparently took a Lortab before coming. Allergy to penicillin. Denies any other injuries today. Patient is up-to-date with her tetanus shot. Per patient pain is 8 out of 10. No other medical issues reported today. PFSH Past Medical History Arthritis: No Asthma: Yes Autoimmune Disease: No Anxiety: No Depression: No Heart Rhythm Problems: No Cancer: No Cardiovascular Problems: No High Cholesterol: No Chemotherapy: No Chest Pain: No Congestive Heart Failure: No COPD: No Cerebrovascular Accident: No Diabetes: No Diminished Hearing: No Endocrine: No GERD: No Genitourinary: No Headaches: Yes Hiatal Hernia: No Immune Disorder: No Kidney Stones: No Musculoskeletal: No Neurologic: Yes (DOUBLE VISION with eye swelling) Psychiatric: No Reproductive: No Respiratory: Yes Immunizations Current: Yes (UTD) Migraines: No Radiation Therapy: No Renal Failure: No Seizures: No Sickle Cell Disease: No Sleep Apnea: No Thyroid Disease: No Ulcer: No Tetanus Vaccination: < 5 Years Influenza Vaccination: No ?: Not LMP: bcp : 0 Past Surgical History Abdominal Surgery: No AICD: No Arteriovenous Shunt: No Cardiac Surgery: No Ear Surgery: No Endocrine Surgery: No Eye Surgery: No Genitourinary Surgery: No Gynecologic Surgery: No Insulin Pump: No Joint Replacement: No Oral Surgery: Yes (TONSILLECTOMY, WISDOM TOOTH REMOVAL) Pacemaker: No Thoracic Surgery: No Tonsillectomy: Yes Other Surgery: Yes (WISDOM ) Social History Alcohol Use: Yes (OCC) Tobacco Use: No Substance Use: No Allergies-Medications (Allergen,Severity, Reaction): Coded Allergies: Penicillin (Verified Allergy, Unknown, hives, 11/04/16) Reported Meds & Prescriptions Reported Meds & Active Scripts Active Lortab (Hydrocodone-Acetaminophen) 5-325 Mg Tab 1 Tab PO Q6H PRN Bactrim DS (Sulfamethoxazole-Trimethoprim) 800-160 Mg Tab 1 Tab PO BID 7 Days Zofran Odt (Ondansetron Odt) 4 Mg Tab 4 Mg SL Q8HR PRN May substitute non-ODT form. Fioricet (Jahjbozjpx-Ohpmxdrbinign-Jlbczlwt) 50-300-40 Mg Cap 1-2 Cap PO Q6H PRN Reported Doxepin (Doxepin HCl) 10 Mg Cap 10 Mg PO HS Cryselle-28 (Norgestrel-Ethinyl Estradiol) 0.3-30 Mg-Mcg Tab 1 Tab PO DAILY Review of Systems Except as stated in HPI: all other systems reviewed are Neg Physical Exam Narrative GENERAL: SKIN: Warm and dry. HEAD: Atraumatic. Normocephalic. EYES: Pupils equal and round. No scleral icterus. No injection or drainage. ENT: No nasal bleeding or discharge. Mucous membranes pink and moist. Tongue is midline. No uvula deviation. NECK: Trachea midline. No JVD. CARDIOVASCULAR: Regular rate and rhythm. RESPIRATORY: No accessory muscle use. Clear to auscultation. Breath sounds equal bilaterally. GASTROINTESTINAL: Abdomen soft, non-tender, nondistended. Hepatic and splenic margins not palpable. MUSCULOSKELETAL: Extremities without clubbing, cyanosis, or edema. No obvious deformities. Full range of motion of the upper and lower extremities bilaterally. Able to ambulate. Patient does have a 5 cm laceration which is about almost 1 cm deep. No sign of muscle damage but tight tissue is involved. No nerve, vessel, foreign body noted. Tender to touch. About 1 cm between borders. NEUROLOGICAL: Awake and alert. No obvious cranial nerve deficits. Motor grossly within normal limits. Five out of 5 muscle strength in the arms and legs. Normal speech. PSYCHIATRIC: Appropriate mood and affect; insight and judgment normal. Data Data Last Documented VS Vital Signs Date Time Temp Pulse Resp B/P Pulse Ox O2 Delivery O2 Flow Rate FiO2 11/04/16 20:43 11/04/16 20:33 98.5 74 18 100 Orders Lorazepam (Ativan) (11/04/16 20:45) Wound Care (11/04/16 20:41) Lidocaine 1% Inj (50 Ml) (Xylocaine 1% I (11/04/16 20:45) [facility] Medical Decision Making Medical Screen Exam Complete: Yes Emergency Medical Condition: Yes Medical Record Reviewed: Yes Differential Diagnosis Laceration versus abrasion versus skin tear Narrative Course 21-year-old female that presents to the ED for evaluation of laceration to the left leg. Patient was properly examined and was found to have signs and symptoms very consistent with a laceration. Recommendation is for suturing. Patient very anxious on initial evaluation. She was given Ativan. After explained procedure to the patient and she agreed to it laceration was repaired as stated in procedure note. She was told to get sutures removed in 2 weeks. Wound care was endorsed. Because of that of laceration I do recommend prophylactic antibiotic treatment. Wound care was endorsed. Close follow-up with PCP. See ED worsening symptoms. Procedures Procedure Narrative LACERATION LOCATION: Left leg laceration LENGTH: 5 cm NUMBER OF STITCHES/AZALIA: 8 sutures (superficial), 3 sutures (deep) REPAIR: The area of the laceration was prepped with Betadine and sterilely draped. The laceration was infiltrated with 1% Xylocaine. The wound was copiously irrigated and explored without evidence of foreign body, tendon injury or neurovascular injury. The wound was closed using 3-0 Prolene and 3-0 Vycril. This was a 2 layer repair. A sterile dressing was applied. The patient was advised to keep the dressing clean and dry. Patient tolerated the procedure well. Diagnosis Primary Impression: Laceration of leg Qualified Code: S81.812A - Laceration of leg, left, initial encounter Patient Instructions: General Instructions, Narcotic given in the ED Additional Instructions: Wound care daily with soap and water. You can apply bandaid if needed. Neosporyn or OTC antibiotic ointment to area as needed twice a day for at least 2 weeks to help with scarring and prevent infection. Meoderma OTC for scarring if needed. Avoid sun exposure for 2 months as the sun could make scar darker and more noticeable. Get sutures removed in 14 days. See ED if worst. Med/Other Pt SpecificInfo: Prescription(s) given, Wound Care Scripts Hydrocodone-Acetaminophen (Lortab)5-325 Mg Tab1 Tab PO Q6H PRN (PAIN) #14 TAB Prov:Dea Garrido MD 11/04/16 Sulfamethoxazole-Trimethoprim (Bactrim DS)800-160 Mg Tab1 Tab PO BID 7 Days Prov:Dea Garrido MD 11/04/16 Disposition: 01 DISCHARGE HOME Condition: Stable Akshat Elizalde Nov 04, 2016 20:56
[2016-11-04] MEDS ORDERED: BACT800T5 PO (20:57)
[2016-11-04] MEDS ORDERED: HYDR-3533 PO (21:46)
== END 2016-11-04 21:55 | disposition home or self-care (01) ==
LOC: PHEFT 20:03
DX: S81.812A Laceration without foreign body, left lower leg, initial encounter (principal); W26.0XXA Contact with knife, initial encounter
CPT/HCPCS: 12032; 12042

== ENCOUNTER 2016-11-08 16:43 | Emergency (ER) | payer BC ==
[~2016-11-08 16:43] MED LIST changes: +BACT800T5 PO; +DOXE10CA PO; +HYDR-3533 PO
[2016-11-08 16:48] VITALS: BP 120/78; PULSE 78; RESP 20; TEMP 98.3; O2SAT 99
[2016-11-08] MEDS ORDERED: LIDOCAINE HCL 1% PF 30 ML VIAL INFIL ONE (18:00)
--- NOTE | 2016-11-08 18:09 | PD ---
HPI Chief Complaint: Wound/Suture/Staple Re-Check Time Seen by Provider: 17:50 Travel History International Travel<30 days: No Contact w/Intl Traveler<30days: No Traveled to known affect area: No History of Present Illness HPI 21-year-old female presents to the emergency room for reevaluation of wound. Patient accidentally cut herself with a knife 4 days ago and had her laceration repaired at that time. States today to the sutures have come out and the wound broke open. She reports continued, but not worse pain. She has been taking Bactrim and Lortab as directed, but states they make her nauseous so she would like to stop taking them. Denies paresthesias. PFSH Past Medical History Arthritis: No Asthma: Yes Autoimmune Disease: No Anxiety: No Depression: No Heart Rhythm Problems: No Cancer: No Cardiovascular Problems: No High Cholesterol: No Chemotherapy: No Chest Pain: No Congestive Heart Failure: No COPD: No Cerebrovascular Accident: No Diabetes: No Diminished Hearing: No Endocrine: No GERD: No Genitourinary: No Headaches: Yes Hiatal Hernia: No Immune Disorder: No Kidney Stones: No Musculoskeletal: No Neurologic: Yes (DOUBLE VISION with eye swelling) Psychiatric: No Reproductive: No Respiratory: Yes Immunizations Current: Yes (UTD) Migraines: No Radiation Therapy: No Renal Failure: No Seizures: No Sickle Cell Disease: No Sleep Apnea: No Thyroid Disease: No Ulcer: No : 0 Past Surgical History Abdominal Surgery: No AICD: No Arteriovenous Shunt: No Cardiac Surgery: No Ear Surgery: No Endocrine Surgery: No Eye Surgery: No Genitourinary Surgery: No Gynecologic Surgery: No Insulin Pump: No Joint Replacement: No Oral Surgery: Yes (TONSILLECTOMY, WISDOM TOOTH REMOVAL) Pacemaker: No Thoracic Surgery: No Tonsillectomy: Yes Other Surgery: Yes (WISDOM ) Social History Alcohol Use: Yes (OCC) Tobacco Use: No Substance Use: No Allergies-Medications (Allergen,Severity, Reaction): Coded Allergies: Penicillin (Verified Allergy, Unknown, hives, 11/08/16) Reported Meds & Prescriptions Reported Meds & Active Scripts Active Lortab (Hydrocodone-Acetaminophen) 5-325 Mg Tab 1 Tab PO Q6H PRN Bactrim DS (Sulfamethoxazole-Trimethoprim) 800-160 Mg Tab 1 Tab PO BID 7 Days Zofran Odt (Ondansetron Odt) 4 Mg Tab 4 Mg SL Q8HR PRN May substitute non-ODT form. Fioricet (Shdfejtujv-Vlxsmpqwlljgm-Omrjkqfo) 50-300-40 Mg Cap 1-2 Cap PO Q6H PRN Reported Cryselle-28 (Norgestrel-Ethinyl Estradiol) 0.3-30 Mg-Mcg Tab 1 Tab PO DAILY Review of Systems Except as stated in HPI: all other systems reviewed are Neg Physical Exam Narrative GENERAL: Well-nourished, well-developed female in no acute distress. Afebrile. Ambulatory. SKIN: Focused skin assessment warm/dry. There is an 8 cm well approximated, healing laceration to the left lateral leg. Several intact sutures. There are 2 unlocked/opened sutures in the middle of the wound which is gaping about 1.5 cm. HEAD: Normocephalic. EYES: No scleral icterus. No injection or drainage. NECK: Supple, trachea midline. No JVD or lymphadenopathy. CARDIOVASCULAR: Regular rate and rhythm without murmurs, gallops, or rubs. RESPIRATORY: Breath sounds equal bilaterally. No accessory muscle use. PSYCHIATRIC: No delusional thought processes. No hallucinations. Data Data Last Documented VS Vital Signs Date Time Temp Pulse Resp B/P Pulse Ox O2 Delivery O2 Flow Rate FiO2 11/08/16 18:16 16 11/08/16 16:48 98.3 78 120/78 99 Orders Lidocaine Pf 1% Inj (Xylocaine-Mpf 1% In (11/08/16 18:00) MDM Medical Decision Making Medical Screen Exam Complete: Yes Emergency Medical Condition: Yes Medical Record Reviewed: Yes Differential Diagnosis Laceration, abrasion, infection Narrative Course 21-year-old female presents to the emergency room for evaluation of laceration to her left lateral leg that occurred 4 days ago after she accidentally cut herself with a knife. Patient had her laceration repaired at that time but states to the sutures have come undone today. The wound opened up. Physical exam reveals 2.5 cm in length opened wound in the center of an 8 cm laceration. The wound is gaping about 1.5 cm. It does not appear infected. No drainage. No surrounding erythema. I spoke to my attending physician, Dr. Patterson, who assessed the wound and agrees that is clinically noninfected appearing. Because the wound is superficial and gaping, it will be closed with delayed primary closure. Patient discharged with wound care instructions and told to return in 10-14 days for removal. She understands and agrees to plan. Procedures Procedure Narrative LACERATION LOCATION: Left lateral thigh LENGTH: 8 cm NUMBER OF STITCHES/AZALIA: 2 simple interrupted and 2 horizontal mattress REPAIR: The area of the laceration was prepped with Betadine and sterilely draped. The laceration was infiltrated with 1% lidocaine. The wound was copiously irrigated and explored without evidence of foreign body, tendon injury or neurovascular injury. The wound was closed using 4-0 Prolene. This was a single layer repair. A sterile dressing was applied. The patient was advised to keep the dressing clean and dry. Patient tolerated the procedure well. Diagnosis Primary Impression: Laceration of leg Qualified Code: S81.812A - Laceration of leg, left, initial encounter Referrals: Primary Care Physician Patient Instructions: General Instructions, Laceration (ED) Additional Instructions: Rest and drink plenty of fluids. Keep wound clean and dry. Apply triple antibiotic ointment daily until healed. Take ibuprofen with food as directed, as needed for pain. Apply ice to the affected area for 20 minutes at a time, as needed for pain and swelling. Follow-up with a primary care physician. Return to the emergency room for worsening symptoms. Disposition: 01 DISCHARGE HOME Condition: Stable Lucia Cardenas Nov 08, 2016 18:09
[2016-11-08] MEDS ORDERED: IBUP-232 PO (18:46)
== END 2016-11-08 19:02 | disposition home or self-care (01) ==
LOC: PHED 16:43 → PHEFT 19:02
DX: S71.112D Laceration without foreign body, left thigh, subsequent encounter (principal); W26.0XXD Contact with knife, subsequent encounter
CPT/HCPCS: 12004

== ENCOUNTER 2016-12-06 21:02 | Emergency (ER) | payer BC ==
[~2016-12-06] VITALS: Ht 175.3 cm; Wt 68.0 kg
[~2016-12-06 21:02] MED LIST changes: -DOXE10CA PO; +IBUP-232 PO
[2016-12-06 21:09] VITALS: BP 124/56; PULSE 79; RESP 12; TEMP 98.6
[2016-12-06] MEDS ORDERED: DIFL150T PO (21:34)
--- NOTE | 2016-12-06 21:35 | PD ---
HPI Chief Complaint: Material Clerk Problem/Complaint Time Seen by Provider: 21:14 Travel History International Travel<30 days: No Contact w/Intl Traveler<30days: No Traveled to known affect area: No History of Present Illness HPI PATIENT C/O ITCHINESS ON HER "PRIVATE PARTS" HAD UNPROTECTED INTERCOURSE AND A FRIEND RAISED THE POSSIBILITY OF CHLAMYDIA EXPOSURE. PATIENT CAME TO DEPT RIGHT AWAY. PT DENIES ANY VAG DISCHARGE AT THIS TIME, ONSET OF ITCHINESS ABOUT 24HRS AGO PFSH Past Medical History Arthritis: No Asthma: Yes Autoimmune Disease: No Anxiety: No Depression: No Heart Rhythm Problems: No Cancer: No Cardiovascular Problems: No High Cholesterol: No Chemotherapy: No Chest Pain: No Congestive Heart Failure: No COPD: No Cerebrovascular Accident: No Diabetes: No Diminished Hearing: No Endocrine: No GERD: No Genitourinary: No Headaches: Yes Hiatal Hernia: No Immune Disorder: No Kidney Stones: No Musculoskeletal: No Neurologic: Yes (DOUBLE VISION with eye swelling) Psychiatric: No Reproductive: No Respiratory: Yes Immunizations Current: Yes (UTD) Migraines: No Radiation Therapy: No Renal Failure: No Seizures: No Sickle Cell Disease: No Sleep Apnea: No Thyroid Disease: No Ulcer: No : 0 Past Surgical History Abdominal Surgery: No AICD: No Arteriovenous Shunt: No Cardiac Surgery: No Ear Surgery: No Endocrine Surgery: No Eye Surgery: No Genitourinary Surgery: No Gynecologic Surgery: No Insulin Pump: No Joint Replacement: No Oral Surgery: Yes (TONSILLECTOMY, WISDOM TOOTH REMOVAL) Pacemaker: No Thoracic Surgery: No Tonsillectomy: Yes Other Surgery: Yes (WISDOM ) Social History Alcohol Use: Yes (OCC) Tobacco Use: No Substance Use: No Allergies-Medications (Allergen,Severity, Reaction): Coded Allergies: Penicillin (Verified Allergy, Unknown, hives, 11/08/16) Reported Meds & Prescriptions Reported Meds & Active Scripts Active Ibuprofen 600 Mg Tab 600 Mg PO Q8HR PRN Lortab (Hydrocodone-Acetaminophen) 5-325 Mg Tab 1 Tab PO Q6H PRN Bactrim DS (Sulfamethoxazole-Trimethoprim) 800-160 Mg Tab 1 Tab PO BID 7 Days Zofran Odt (Ondansetron Odt) 4 Mg Tab 4 Mg SL Q8HR PRN May substitute non-ODT form. Fioricet (Wytrldfqfv-Joaxgplpbaxdp-Mjlmlsed) 50-300-40 Mg Cap 1-2 Cap PO Q6H PRN Reported Cryselle-28 (Norgestrel-Ethinyl Estradiol) 0.3-30 Mg-Mcg Tab 1 Tab PO DAILY Review of Systems Except as stated in HPI: all other systems reviewed are Neg Genitourinary: Positive: Other (VULVAR ITCHINESS PER HX) Physical Exam Narrative GENERAL: SKIN: Warm and dry. HEAD: Atraumatic. Normocephalic. EYES: Pupils equal and round. No scleral icterus. No injection or drainage. ENT: No nasal bleeding or discharge. Mucous membranes pink and moist. NECK: Trachea midline. No JVD. CARDIOVASCULAR: Regular rate and rhythm. RESPIRATORY: No accessory muscle use. Clear to auscultation. Breath sounds equal bilaterally. GASTROINTESTINAL: Abdomen soft, non-tender, nondistended. 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 No obvious deformities. NEUROLOGICAL: Awake and alert. No obvious cranial nerve deficits. Motor grossly within normal limits. Five out of 5 muscle strength in the arms and legs. Normal speech. PSYCHIATRIC: Appropriate mood and affect; insight and judgment normal. Data Data Last Documented VS Vital Signs Date Time Temp Pulse Resp B/P Pulse Ox O2 Delivery O2 Flow Rate FiO2 12/06/16 21:09 98.6 79 12 124/56 [facility] Medical Decision Making Medical Screen Exam Complete: Yes Emergency Medical Condition: Yes Medical Record Reviewed: Yes Differential Diagnosis VAGINITIS BACTERIAL V YEAST V PREG RELATED SYMPTOMS Narrative Course AFTER EXAMINATION ONLY NOTED E/O NIRMAL VAGINITIS, WILL D/C ON DIFLUCAN AND SEND SWABS, IF POSITIVE, ADVISED PATIENT THAT SHE WILL BE CALLED Diagnosis Primary Impression: Vaginal candidiasis Patient Instructions: General Instructions, Vulvovaginal Candidiasis (ED) Scripts Fluconazole (Diflucan)150 Mg [id number] Mg PO ONCE #1 TAB Prov:Madi Saez MD 12/06/16 Disposition: 01 DISCHARGE HOME Condition: Stable Madi Saez MD Dec 06, 2016 21:35
[2016-12-06 21:48] LABS: BLOOD, URINE TRACE (NEG); GLUCOSE,URINE NEG (NEG); KETONE, URINE NEG (NEG); NITRITE,URINE NEG (NEG)
[2016-12-06 22:05] LABS: METHOD OF COLLECTION VOIDED; URINE COLOR YELLOW (YELLW/STRAW)
[2016-12-06 22:06] LABS: BACTERIA, URINE FEW /hpf; COMMENT (UR) CULT NOT INDICATED; CULTURE IF INDICATED CULT NOT INDICATED; RBC, URINE 0-3 /hpf (0-3); WBC, URINE 0-2 /hpf (0-5)
[2016-12-07 07:32] LABS: CHLAMYDIA PCR NOT DETECTED (NOT DETECT); NEISSERIA PCR NOT DETECTED (NOT DETECT)
== END 2016-12-06 22:13 | disposition home or self-care (01) ==
LOC: PHED 21:02
DX: B37.3 Candidiasis of vulva and vagina (principal)
CPT/HCPCS: 81001; 84703; 87210; 87491; 87591; 99283

== ENCOUNTER 2017-01-15 14:03 | Emergency (ER) | payer BC ==
[~2017-01-15] VITALS: Ht 175.3 cm; Wt 71.6 kg
[~2017-01-15 14:03] MED LIST changes: -BUTA1CAP PO; +DIFL150T PO; -HYDR-3533 PO; -IBUP-232 PO; -ZOFR4TAB3 SL
[2017-01-15 14:04] VITALS: BP 132/76; PULSE 110; RESP 20; TEMP 97.7; O2SAT 100
[2017-01-15 14:15] VITALS: O2SAT 100
[2017-01-15] MEDS ORDERED: FAMOTIDINE 20 MG/2 ML VIAL IV PUSH ONE (14:30)
[2017-01-15] MEDS ORDERED: ASPIRIN 325 MG TAB PO ONE (14:30)
[2017-01-15] MEDS ORDERED: PANTOPRAZOLE SODIUM 40 MG VIAL IVP ONE (14:30)
[2017-01-15] MEDS ORDERED: KETOROLAC TROMETHAMINE 30 MG/ML (IVP) VIAL IV PUSH ONE (14:30)
[2017-01-15] MEDS ORDERED: ALUMINUM/MAGNESIUM/SIMETH 30 ML CUP PO ONE (14:30)
[2017-01-15] MEDS ORDERED: LIDOCAINE VISCOUS 2% SOLN 15 ML UDC PO ONE (14:30)
[2017-01-15] MEDS ORDERED: SODIUM CHLORIDE 0.9% FLUSH 10 ML FLUSH IVF PRN (14:30)
--- NOTE | 2017-01-15 14:32 | PD ---
HPI Chief Complaint: Chest Pain Time Seen by Provider: 14:23 Travel History International Travel<30 days: No Contact w/Intl Traveler<30days: No Traveled to known affect area: No History of Present Illness HPI Patient presents with acute onset of sternal chest pain that started 2 hours ago. Reports recently starting clindamycin and tramadol for right breast cellulitis. Concerns of a medication reaction. Took some Pepto-Bismol without relief of her symptoms. No cardiac history. No family cardiac history. Nondiabetic. Nonsmoker. Denies radiation diaphoresis or shortness of breath. Denies acid brash. Increased stressors with loss of her father 2 weeks ago. PFSH Past Medical History Arthritis: No Asthma: Yes Autoimmune Disease: No Anxiety: No Depression: No Heart Rhythm Problems: No Cancer: No Cardiovascular Problems: No High Cholesterol: No Chemotherapy: No Chest Pain: No Congestive Heart Failure: No COPD: No Cerebrovascular Accident: No Diabetes: No Diminished Hearing: No Endocrine: No Gastrointestinal Disorders: No GERD: No Genitourinary: No Headaches: Yes Hiatal Hernia: No Heparin Induced Thrombocytopen: No Hypertension: No Immune Disorder: No Implanted Vascular Access Dvce: No Kidney Stones: No Musculoskeletal: No Neurologic: Yes (DOUBLE VISION with eye swelling) Psychiatric: No Reproductive: No Respiratory: Yes Immunizations Current: Yes (UTD) Migraines: No Radiation Therapy: No Renal Failure: No Seizures: No Sickle Cell Disease: No Sleep Apnea: No Thyroid Disease: No Ulcer: No LMP: 2 WEEKS AGO : 0 Past Surgical History Abdominal Surgery: No AICD: No Arteriovenous Shunt: No Cardiac Surgery: No Ear Surgery: No Endocrine Surgery: No Eye Surgery: No Genitourinary Surgery: No Gynecologic Surgery: No Insulin Pump: No Joint Replacement: No Neurologic Surgery: No Oral Surgery: Yes (TONSILLECTOMY, WISDOM TOOTH REMOVAL) Pacemaker: No Thoracic Surgery: No Tonsillectomy: Yes Other Surgery: Yes (WISDOM ) Social History Alcohol Use: Yes (OCC) Tobacco Use: No Substance Use: No Allergies-Medications (Allergen,Severity, Reaction): Coded Allergies: penicillin G (Unverified Allergy, Unknown, hives, 12/07/16) Reported Meds & Prescriptions Reported Meds & Active Scripts Active Reported Butalbital-Acetaminophen 50-325 Mg Tab 1-2 Tab PO Q4HR PRN Do not exceed 6 tablets per day. Clindamycin (Clindamycin HCl) 300 Mg Cap 300 Mg PO TID Tramadol (Tramadol HCl) 50 Mg Tab 50 Mg PO Q4H PRN Cryselle-28 (Norgestrel-Ethinyl Estradiol) 0.3-30 Mg-Mcg Tab 1 Tab PO DAILY Review of Systems General / Constitutional: No: Fever Eyes: No: Visual changes HENT: No: Headaches Cardiovascular: Positive: Chest Pain or Discomfort Respiratory: No: Shortness of Breath Gastrointestinal: No: Abdominal Pain Genitourinary: No: Dysuria Musculoskeletal: No: Pain Skin: No Rash Neurologic: No: Weakness Psychiatric: No: Depression Endocrine: No: Polydipsia Hematologic/Lymphatic: No: Easy Bruising Physical Exam Narrative GENERAL: Well-nourished, well-developed patient. SKIN: Focused skin assessment warm/dry. HEAD: Normocephalic. EYES: No scleral icterus. No injection or drainage. NECK: Supple, trachea midline. No JVD or lymphadenopathy. Horizontal lacerations noted the left wrist CARDIOVASCULAR: Regular rate and rhythm without murmurs, gallops, or rubs. RESPIRATORY: Breath sounds equal bilaterally. No accessory muscle use. GASTROINTESTINAL: Abdomen soft, non-tender, nondistended. MUSCULOSKELETAL: No cyanosis, or edema. BACK: Nontender without obvious deformity. No CVA tenderness. Data Data Last Documented VS Vital Signs Date Time Temp Pulse Resp B/P (MAP) Pulse Ox O2 Delivery O2 Flow Rate FiO2 01/15/17 14:15 100 01/15/17 14:04 97.7 110 20 132/76 (94) Orders Orders Electrocardiogram (01/15/17 14:23) Ckmb (Isoenzyme) Profile (01/15/17 14:23) Complete Blood Count With Diff (01/15/17 14:23) Comprehensive Metabolic Panel (01/15/17 14:23) Magnesium (Mg) (01/15/17 14:23) Prothrombin Time / Inr (Pt) (01/15/17 14:23) Act Partial Throm Time (Ptt) (01/15/17 14:23) Troponin I (01/15/17 14:23) Chest, Single Ap (01/15/17 14:23) Ecg Monitoring (01/15/17 14:23) Bilateral Bp Monitoring (01/15/17 14:23) Iv Access Insert/Monitor (01/15/17 14:23) Oximetry (01/15/17 14:23) Oxygen Administration (01/15/17 14:23) Aspirin (Aspirin) (01/15/17 14:30) Sodium Chloride 0.9% Flush (Ns Flush) (01/15/17 14:30) Ketorolac Inj (Toradol Inj) (01/15/17 14:30) Pantoprazole Inj (Protonix Inj) (01/15/17 14:30) Famotidine Inj (Pepcid Inj) (01/15/17 14:30) Al-Mag Hy-Si 40-40-4 Mg/Ml Liq (Mag-Al P (01/15/17 14:30) Lidocaine 2% Viscous (Xylocaine 2% Visco (01/15/17 14:30) Labs Laboratory Tests Test 01/15/17 14:30 White Blood Count 12.1 TH/MM3 Red Blood Count 4.43 MIL/MM3 Hemoglobin 13.6 GM/DL Hematocrit 41.0 % Mean Corpuscular Volume 92.5 FL Mean Corpuscular Hemoglobin 30.6 PG Mean Corpuscular Hemoglobin Concent 33.1 % Red Cell Distribution Width 11.9 % Platelet Count 174 TH/MM3 Mean Platelet Volume 9.4 FL Neutrophils (%) (Auto) 69.2 % Lymphocytes (%) (Auto) 19.7 % Monocytes (%) (Auto) 10.0 % Eosinophils (%) (Auto) 1.0 % Basophils (%) (Auto) 0.1 % Neutrophils # (Auto) 8.4 TH/MM3 Lymphocytes # (Auto) 2.4 TH/MM3 Monocytes # (Auto) 1.2 TH/MM3 Eosinophils # (Auto) 0.1 TH/MM3 Basophils # (Auto) 0.0 TH/MM3 CBC Comment DIFF FINAL Differential Comment Prothrombin Time 11.1 SEC Prothromb Time International Ratio 1.0 RATIO Activated Partial Thromboplast Time 31.0 SEC Blood Urea Nitrogen 17 MG/DL Creatinine 0.77 MG/DL Random Glucose 98 MG/DL Total Protein 6.9 GM/DL Albumin 3.7 GM/DL Calcium Level 8.8 MG/DL Magnesium Level 2.1 MG/DL Alkaline Phosphatase 73 U/L Aspartate Amino Transf (AST/SGOT) 18 U/L Alanine Aminotransferase (ALT/SGPT) 24 U/L Total Bilirubin 0.5 MG/DL Sodium Level 136 MEQ/L Potassium Level 4.0 MEQ/L Chloride Level 103 MEQ/L Carbon Dioxide Level 25.7 MEQ/L Anion Gap 7 MEQ/L Estimat Glomerular Filtration Rate 96 ML/MIN Total Creatine Kinase 54 U/L Troponin I LESS THAN 0.02 NG/ML MDM Medical Decision Making Medical Screen Exam Complete: Yes Emergency Medical Condition: Yes Differential Diagnosis Costochondritis, acute coronary syndrome, reflux, esophagitis Narrative Course Assessment and plan discussed with patient at bedside. EKG reveals sinus rhythm rate of 87. Chest discomfort improved with GI cocktail. Labs reviewed. Last 72 hours Impressions Chest X-Ray 01/15/17 1423 Signed Impressions: Service Date/Time: Sunday, January 15, 2017 14:41 - CONCLUSION: No acute disease. Rony Moore MD Diagnosis Primary Impression: Atypical chest pain Patient Instructions: General Instructions Additional Instructions: Rest fluids and [id number] H2 blockers. Follow-up with PCP. Return to emergency with any onset of new symptoms. Encouraged to avoid aggravating factors of reflux including but not limited to alcohol tobacco late large meals spicy meals and weight Med/Other Pt SpecificInfo: No Meds Exist/No RX given Disposition: 01 DISCHARGE HOME Condition: Good Jose Haque MD Jan 15, 2017 14:32
[2017-01-15 14:49] LABS: AUTOMATED NEUTROPHIL # 8.4 TH/MM3 (1.8-7.7); BASOPHIL % 0.1 % (0.0-2.0); EOSINOPHIL # 0.1 TH/MM3 (0-0.4); HEMO FLAGS DIFF FINAL; LYMPH % 19.7 % (9.0-44.0); LYMPHOCYTE # 2.4 TH/MM3 (1.0-4.8); MEAN CELL VOLUME 92.5 FL (80.0-100.0); MEAN CORPUSCULAR HEMOGLOBIN 30.6 PG (27.0-34.0); MEAN CORPUSCULAR HGB CONC 33.1 % (32.0-36.0); NEUT % 69.2 % (16.0-70.0); PLATELET COUNT 174 TH/MM3 (150-450); RED BLOOD COUNT 4.43 MIL/MM3 (4.00-5.30); RED CELL DISTRIBUTION WIDTH 11.9 % (11.6-17.2); WHITE BLOOD COUNT 12.1 TH/MM3 (4.0-11.0)
[2017-01-15 14:50] LABS: CHLORIDE 103 MEQ/L (98-107); SODIUM (NA) 136 MEQ/L (136-145)
[2017-01-15 14:54] LABS: ANION GAP 7 MEQ/L (5-15); BICARBONATE 25.7 MEQ/L (21.0-32.0); BLOOD UREA NITROGEN 17 MG/DL (7-18); MAGNESIUM 2.1 MG/DL (1.5-2.5)
[2017-01-15 14:55] LABS: PROTHROMBIN TIME - PATIENT 11.1 SEC (9.8-11.6)
[2017-01-15 14:57] LABS: ALT (GPT) 24 U/L (9-42); AST (GOT) 18 U/L (16-38); GLOMERULAR FILTRATION RATE 96 ML/MIN (>89)
[2017-01-15 14:58] LABS: TOTAL BILIRUBIN ADULT 0.5 MG/DL (0.2-1.0)
[2017-01-15 15:00] LABS: ALKALINE PHOSPHATASE 73 U/L (45-117)
--- NOTE | 2017-01-15 15:08 | RADRPT ---
EXAM DATE/TIME: 01/15/2017 14:41 [facility] COMPARISON: No previous studies available for comparison. INDICATIONS : Lower chest pain for several hours. MEDICAL HISTORY : None. SURGICAL HISTORY : None. ENCOUNTER: Initial ACUITY: 1 day PAIN SCORE: 8/10 LOCATION: Bilateral chest FINDINGS: A single view of the chest demonstrates the lungs to be symmetrically aerated without evidence of mas s, infiltrate or effusion. The cardiomediastinal contours are unremarkable. Osseous structures are intact. CONCLUSION: No acute disease. Rony Moore MD on January 15, 2017 at 15:06 Board Certified Radiologist. This report was verified electronically.
[2017-01-15 15:12] LABS: CREATINE KINASE 54 U/L (26-192)
[2017-01-15 15:19] VITALS: BP 115/66; PULSE 87; RESP 16; O2SAT 100
[2017-01-15] MEDS ORDERED: TRAM50TA PO (15:28)
[2017-01-15] MEDS ORDERED: BUTA1TAB30 PO (15:28)
[2017-01-15] MEDS ORDERED: CLIN1CAP6 PO (15:28)
--- NOTE | 2017-01-16 12:39 | EKG ---
Date Performed: 01/15/2017 Time Performed: 14:14:24 PTAGE: 21 years EKG: Sinus rhythm NORMAL ECG NO PREVIOUS TRACING DOCTOR: Kapil Tejada Interpretating Date/Time 01/16/2017 12:38:39
== END 2017-01-15 15:46 | disposition home or self-care (01) ==
LOC: PHED 14:03
DX: R07.89 Other chest pain (principal); Z79.899 Other long term (current) drug therapy
CPT/HCPCS: 71010; 80053; 82550; 83735; 84484; 85025; 85610; 85730; 93005; 96374; 96375; 99285; C9113; J1885